=== PATIENT | male | born 1960 | race Caucasian/White ===

== ENCOUNTER 2019-02-02 05:23 | Emergency (ER) | payer SELFPAY ==
[~2019-02-02] VITALS: Ht 198.1 cm; Wt 107.5 kg
[2019-02-02 05:34] VITALS: Ht 198.1 cm; Wt 107.5 kg
[2019-02-02 06:21] VITALS: BP 144/88
== END 2019-02-02 06:21 | disposition home or self-care (01) ==
LOC: ED 05:23
DX: Z76.0 Encounter for issue of repeat prescription (principal); I50.9 Heart failure, unspecified; I11.0 Hypertensive heart disease with heart failure; I48.91 Unspecified atrial fibrillation; Z88.0 Allergy status to penicillin